=== PATIENT | female | born 1945 | race Caucasian/White ===

== ENCOUNTER 2017-08-19 10:01 | Day surgery (SDC) | payer MEDICARE ==
[~2017-08-19] VITALS: Ht 165.1 cm; Wt 79.5 kg
[2017-08-19] MEDS ORDERED: GABAPENTIN 300 MG CAPSULE PO ONE (11:00)
[2017-08-19] MEDS ORDERED: GABAPENTIN 400 MG CAPSULE PO ONE (11:00)
[2017-08-19] MEDS ORDERED: FENTANYL PF 250 MCG/5ML ONE (11:12)
[2017-08-19] MEDS ORDERED: CEFAZOLIN 1,000 MG ONE (11:12)
[2017-08-19] MEDS ORDERED: PROPOFOL 10 MG/ML, 20ML ONE (11:12)
[2017-08-19] MEDS ORDERED: ONDANSETRON 2MG/ML, 2ML ONE (11:12)
[2017-08-19] MEDS ORDERED: DEXAMETHASONE 4 MG/ML, 1ML ONE (11:12)
[2017-08-19 11:33] VITALS: BP 115/70
[2017-08-19] MEDS ORDERED: EZET10TA18 PO (11:33)
[2017-08-19] MEDS ORDERED: CLOM50CA2 PO (11:33)
[2017-08-19] MEDS ORDERED: OMEP-110 PO (11:33)
[2017-08-19] MEDS ORDERED: LACTATED RINGERS 1,000 ML IV SCH (12:00)
[2017-08-19] MEDS ORDERED: ACETAMINOPHEN 500 MG TABLET PO ONE (12:00)
[2017-08-19] MEDS ORDERED: THROMBIN 5,000 UNIT VIAL TP ONE (12:02)
[2017-08-19] MEDS ORDERED: BUPIVACAINE/PF 0.25% ONE (12:02)
[2017-08-19] MEDS ORDERED: EPINEPHRINE 1 MG/ML, 1ML ONE (12:02)
[2017-08-19] MEDS ORDERED: NEOMY/POLYMYXIN B GU IRR. 1 ML IRRIG ONE (12:02)
[2017-08-19] MEDS ORDERED: KETOROLAC 30 MG/1 ML ONE (12:55)
[2017-08-19] MEDS ORDERED: LABETALOL 5MG/ML, 20ML IV PRN (13:00)
[2017-08-19] MEDS ORDERED: MEPERIDINE/PF 25MG/0.5ML IVPush PRN (13:00)
[2017-08-19] MEDS ORDERED: ALBUTEROL/IPRATROPIUM 2.5MG/0.5MG, 3 ML NPPB PRN (13:00)
[2017-08-19] MEDS ORDERED: PROMETHAZINE 25 MG/ML, 1ML IV PRN (13:00)
[2017-08-19] MEDS ORDERED: FENTANYL PF 100 MCG/2ML IV PRN (13:00)
[2017-08-19] MEDS ORDERED: PROMETHAZINE 12.5 MG SUPP PR PRN (13:00)
[2017-08-19] MEDS ORDERED: hydrALAzine 20 MG/ML, 1ML IV PRN (13:00)
[2017-08-19] MEDS ORDERED: HYDROmorphone 1 MG/ML, 1ML IV PRN (13:00)
[2017-08-19] MEDS ORDERED: OXYcodone 5 MG/5 ML ORAL.SOL UDC PO PRN (13:00)
[2017-08-19] MEDS ORDERED: ONDANSETRON 2MG/ML, 2ML IVPush PRN (13:00)
[2017-08-19] MEDS ORDERED: MIDAZOLAM 1 MG/ML, 2ML IV PRN (13:00)
[2017-08-19] MEDS ORDERED: OXYcodone 5 MG/5 ML ORAL.SOL UDC ONE (13:37)
== END 2017-08-19 16:55 | disposition home or self-care (01) ==
LOC: OUT 10:01
PROVIDERS: ATTEND Obstetrics & Gynecology
DX: N39.3 Stress incontinence (female) (male) (principal); K21.9 Gastro-esophageal reflux disease without esophagitis; Z79.82 Long term (current) use of aspirin; Z79.899 Other long term (current) drug therapy
CPT/HCPCS: 57288; 93005; C1771; J0171; J0690; J1100; J1885; J2405; J2704; J3010; J3490; J7120